=== PATIENT | female | born 1980 | race Caucasian/White ===

== ENCOUNTER → 2021-03-02 14:32 | Outpatient (CLI) | payer OTHER, SELFPAY ==
--- NOTE | ~2021-03-02 | US_ITS ---
EXAMINATION: US pelvic complete w TV DATE: 03/02/2021 14:57 INDICATION: Pelvic pain. Status post hysterectomy in 2010 Comparison:No prior studies for comparison. TECHNIQUE: Multiple transabdominal and endovaginal sonographic images of the pelvis performed. FINDINGS: The uterus is surgically absent. The right ovary measures 1.8 x 1.8 x 1.4 cm and the left ovary measures 3.1 x 2.2 x 2.2 cm. There is a 1.8 cm left ovarian cyst. There are small follicles in each ovary. Normal doppler signal in both ov yesenia. There is free fluid in the pelvis, likely physiologic. There are no abnormal masses seen on either s cherry. IMPRESSION: 1. Left ovarian cyst measuring 1.8 cm. Reviewed, dictated and finalized at location A.
== END ==
PROVIDERS: PCP Physician Assistant Medical; Visit Provider Nurse Practitioner Obstetrics & Gynecology
DX: R10.2 Pelvic and perineal pain (principal); N83.202 Unspecified ovarian cyst, left side
CPT/HCPCS: 76830; 76856

== ENCOUNTER 2021-10-21 10:59 | Emergency (ER) | payer OTHER, SELFPAY ==
[2021-10-21 11:16] VITALS: BP 115/77; PULSE 88; RESP 16; TEMP 36.8; O2SAT 100
--- NOTE | 2021-10-21 11:49 | ED.URI ---
HPI - URI/Sore Throat General Chief Complaint: Upper Respiratory Infection Stated Complaint: Sore Throat,Fever,Body Aches Time Seen by Provider: 10/21/21 11:31 Source: patient and RN notes reviewed Mode of arrival: ambulatory Limitations: no limitations History of Present Illness HPI Narrative: Patient presents today complaining of fever up to 99.8, sore throat, body aches since this morning. Denies cough, congestion, rhinorrhea. Currently rates her sore throat 5/and has been taking ibuprofen with mild relief. MD elicited complaint: sore throat Related Data Home Medications Medication Instructions Recorded Confirmed alprazolam 0.25 mg PO BID PRN 10/21/21 10/21/21 Allergies Allergy/AdvReac Type Severity Reaction Status Date / Time No Known Allergies Allergy Verified 03/08/18 10:17 Review of Systems Review of Systems: CONSTITUTIONAL: Denies chills, or sweats.+ Fever, body aches EYES: Denies visual changes, redness, or discharge. ENT: Denies rhinorrhea, congestion, or otalgia.+ Sore throat CARDIOVASCULAR: Denies chest pain, palpitations, or edema. RESPIRATORY: Denies cough or dyspnea. GASTROINTESTINAL: Denies abdominal pain, nausea, vomiting, or diarrhea. GENITOURINARY: Denies dysuria or hematuria. SKIN: Denies rash, itching, or wounds. MUSCULOSKELETAL: Denies back pain, joint pain, or myalgia. NEUROLOGIC: Denies headache, numbness, tingling, or weakness. PSYCH: Denies depression or anxiety. PMFSH Comments At time of signature, I have reviewed and agree with nursing past medical, surgical, social and family history unless otherwise noted. Please see nursing chart for further information. There is no relevant family history pertinent to the presenting complaint Exam Narrative: GENERAL: Well-appearing, well-nourished, and in no acute distress. HEAD: Normocephalic, atraumatic. EYES: EOMI. No redness or drainage. Conjunctivae normal. ENT: Mucous membranes pink and moist. Nares clear. No rhinorrhea. TMs normal bilaterally. Throat mildly erythematous at the left palatine arch without edema or exudate. Uvula midline. NECK: Normal AROM. Supple. No lymphadenopathy. CHEST: No respiratory distress. Clear to auscultation. HEART: Regular rate and rhythm. No murmur appreciated. Normal peripheral pulses. EXTREMITIES: Normal range of motion. No edema. SKIN: Warm, dry, no rash. Capillary refill normal. Normal skin turgor. NEURO: No focal deficits. Alert and oriented x3. Gait steady. PSYCH: Normal affect. No signs of depression or anxiety. Course Course Emergency Course: We will send strep swab off for culture only. Level of Care: Express Care Visit Vital Signs Vital signs: Vital Signs Temperature 98.2 F 10/21/21 11:16 Pulse Rate 88 10/21/21 11:16 Respiratory Rate 16 10/21/21 11:16 Blood Pressure 115/77 10/21/21 11:16 Pulse Oximetry 100 10/21/21 11:16 Temperature 98.2 F 10/21/21 11:16 Pulse Rate 88 10/21/21 11:16 Respiratory Rate 16 10/21/21 11:16 Blood Pressure 115/77 10/21/21 11:16 Pulse Oximetry 100 10/21/21 11:16 Reviewed MDM - URI/Sore Throat Differential Diagnosis Differential diagnosis: Likely upper respiratory infection, viral infection, pharyngitis and other (COVID-19) Lab Data Attestation: I reviewed the patient's lab results. Lab results narrative: COVID-19 negative Critical Care Time Critical Care Time Critical Care Time: No Discharge Plan Discharge Clinical Impression: Pharyngitis Qualifiers: Pharyngitis/tonsillitis etiology: unspecified etiology Qualified Code(s): J02.9 - Acute pharyngitis, unspecified Patient Disposition: Home, Self-Care Condition: Stable Instructions: Pharyngitis (ED) Additional Instructions: Your COVID-19 test is negative today. A swab has been sent off for strep culture. You will be notified in a couple of days if that culture comes back positive, and appropriate antibiotics will be called in for you at that time. Y
== END 2021-10-21 11:57 | disposition home or self-care (01) ==
PROVIDERS: Emergency Provider Nurse Practitioner; PCP Physician Assistant Medical
DX: J02.9 Acute pharyngitis, unspecified (principal); Z20.822 Contact with and (suspected) exposure to COVID-19; F41.9 Anxiety disorder, unspecified
CPT/HCPCS: 87081; 87426; 99213; C9803; G0463